=== PATIENT | male | born 1975 | race Caucasian/White ===

== ENCOUNTER 2019-09-12 23:41 | Emergency (ER) | payer OTHER, SELFPAY ==
--- NOTE | ~2019-09-12 | XR_ITS ---
EXAMINATION: XR ankle RT min 3V DATE: 09/13/2019 01:03 INDICATION: Right ankle pain post fall TECHNIQUE: Anteroposterior, oblique, mortise, and lateral views of the right ankle were obtained. COMPARISON: None. FINDINGS: Alignment is normal. No acute fracture. Tiny corticated ossicle with smooth margins either degenerat donnell loose body or heterotopic ossification related to old deltoid ligament sprain projecting over the medial clear space. Joint spaces are well maintained. No ankle joint effusion. Prominent soft tissu e swelling about the lateral malleolus. Tiny plantar calcaneal spur. Small amount of enthesopathic os sification at the distal Achilles tendon. IMPRESSION: 1. No acute osseous abnormality. Reviewed, dictated and finalized at location A.
[2019-09-12 23:55] VITALS: BP 98/65; PULSE 79; RESP 18; TEMP 36.3; O2SAT 95
--- NOTE | 2019-09-13 01:43 | ED.LOWEXIN ---
HPI - Extremity Injury (Lower) General Chief Complaint: Extremity Injury, Lower Stated Complaint: RIGHT ANKLE INJURY Time Seen by Provider: 09/13/19 01:05 Source: patient Mode of arrival: ambulatory Limitations: no limitations History of Present Illness HPI Narrative: This patient is 43 yo male who presents with c/o right ankle injury. He states just 20 minutes prior to arrival he stepped off a porch and he felt a pop . He has pain and swelling to right lateral ankle. He states his pain is worse with walking. He has not taken anything pain. Denies falling or hitting head. complaint: ankle injury (right ankle) Related Data Home Medications Medication Instructions Recorded Confirmed alprazolam 0.5 mg PO PRN 09/12/19 lisinopril 10 mg PO DAILY 09/12/19 Allergies Allergy/AdvReac Type Severity Reaction Status Date / Time No Known Allergies Allergy Verified 09/12/19 23:58 Review of Systems Review of Systems: All systems reviewed & are unremarkable except as noted in HPI and below Constitutional: Constitutional: Denies chills and Denies fever(s) Musculoskeletal: Musculoskeletal: Reports joint swelling Neurologic: Denies focal weakness and Denies numbness PMF Past Medical History Medical History (Updated 09/13/19 @ 01:51 by Shabana Estrada MD) Hypertension Family History Family History (Updated 06/25/16 @ 10:13 by DOCTOR UNKNOWN) Mother Family history of diabetes mellitus in first degree relative Family history of type 2 diabetes mellitus Other Cerebrovascular accident Family history of malignant neoplasm Hypertension Social History Social History Smoking status: Former smoker Smoking end date: 05/26/15 Alcohol intake: current Exam Const: General: no acute distress and alert Orientation/consciousness: patient oriented x3 HENMT: Head: normocephalic and atraumatic Eyes: EOM: EOMs intact bilaterally Neck: Neck: normal visual inspection Resp: Effort & Inspection: normal respiratory effort Skin: General skin exam: normal color Rashes: no rashes Neuro: General: patient oriented x3 and moves all extremities Extrem: Other: right ankle with right lateral malleolus swelling and tenderness. No TTP proximal to ankle. Strong palpable DP, PT pulse Psych: Mental Status: mental status grossly normal Course Course Emergency Course: PAtient presented with right ankle injury. I have discussed with patient that xray shows no fracture and the xray will be reviewed by radiology in the morning. He will be called for discrepancy. He was given crutches and ice pack Vital Signs Vital signs: Vital Signs Temperature 97.4 F L 09/12/19 23:55 Pulse Rate 79 09/12/19 23:55 Respiratory Rate 18 09/12/19 23:55 Blood Pressure 98/65 L 09/12/19 23:55 Pulse Oximetry 95 09/12/19 23:55 Temperature 97.4 F L 09/12/19 23:55 Pulse Rate 88 09/13/19 02:05 Respiratory Rate 18 09/13/19 02:05 Blood Pressure 129/77 09/13/19 02:05 Pulse Oximetry 98 09/13/19 02:05 MDM - Extremity Injury (Lower) Imaging Data My impression: right ankle xray- no acute fracture. Discharge Plan Discharge Clinical Impression: Right ankle sprain Qualifiers: Encounter type: initial encounter Involved ligament of ankle: other ligament Qualified Code(s): S93.491A - Sprain of other ligament of right ankle, initial encounter Patient Disposition: Home, Self-Care Condition: Stable Instructions: Antibiotic Form, Ankle Sprain (ED) Additional Instructions: Today you were evaluated for an ankle sprain. Continue to elevate and ice to help reduce swelling and pain. Taken medication such as naproxen or ibuprofen for your pain. you can use walking boot over the next week to help reduce pressure. You pain should reduce over the next 3-4 days. Prescriptions: No Action alprazolam 0.5 mg tablet 0.5 mg PO PRN (Reason: Anxiety) RF: 0 lisinopril 10 mg tablet 10
[2019-09-13] MEDS: IBUPROFEN 400 MG TABLET 800 MG PO (01:59)
[2019-09-13 02:05] VITALS: BP 129/77; PULSE 88; RESP 18; O2SAT 98
== END 2019-09-13 02:06 | disposition home or self-care (01) ==
PROVIDERS: Emergency Provider General Practice
DX: S93.491A Sprain of other ligament of right ankle, initial encounter (principal); I10 Essential (primary) hypertension; Z87.891 Personal history of nicotine dependence; X50.9XXA Other and unspecified overexertion or strenuous movements or postures, initial encounter
CPT/HCPCS: 73610; 99283; A9270

== ENCOUNTER 2020-01-18 17:38 | Emergency (ER) | payer OTHER, SELFPAY ==
--- NOTE | ~2020-01-18 | XR_ITS ---
XR ankle RT min 3V 01/18/2020 18:02 Indication: Right ankle pain laterally. Procedure: 4 views right ankle Comparison: 09/13/2019 Findings: There is a new ossific density along the medial margin of the medial malleolus, suspicious for avulsion fracture. Ankle mortise intact. No other fractures. Ankle mortise intact. Talar dome is normal. No foreign bodies. Impression: 1: New small ossific density adjacent to the medial malleolus, suspicious for avulsion fracture. Victoriano elate for point tenderness. Reviewed, dictated and finalized at location A. Impression: 1: New small ossific density adjacent to the medial malleolus, suspicious for a vulsion fracture. Correlate for point tenderness.
[2020-01-18 17:50] VITALS: BP 147/94; PULSE 81; RESP 18; TEMP 36.7; O2SAT 100
--- NOTE | 2020-01-18 17:55 | ED.LOWEXIN ---
HPI - Extremity Injury (Lower) General Chief Complaint: Extremity Injury, Lower Stated Complaint: R/ankle pain Time Seen by Provider: 01/18/20 17:40 Source: patient Mode of arrival: ambulatory Limitations: no limitations History of Present Illness HPI Narrative: Patient presents for evaluation of right ankle pain. He indicates he sustained an injury to the right ankle back in August of this year. He was walking down some steps when he twisted his ankle. He was evaluated in the emergency department and states that he had an x-ray that was negative for fracture. He eventually purchased a boot which seemed to alleviate his pain. Over the course of the last week he has noted worsening pain in the right lateral malleolus. He cannot identify any new precipitating factor. He states over the course of 4 hours pain has become unbearable . He describes the pain is sharp , rated 7 out of 10 in severity. Reports some decreased range of motion. No paresthesias. No radicular component. Tried taking Aleve with minimal improvement in his symptoms or after. Related Data Home Medications Medication Instructions Recorded Confirmed lisinopril 10 mg PO DAILY 09/12/19 01/18/20 Allergies Allergy/AdvReac Type Severity Reaction Status Date / Time No Known Allergies Allergy Verified 09/12/19 23:58 Review of Systems Review of Systems: Narrative: CONSTITUTIONAL: Denies fever, chills, or sweats. EYES: Denies visual changes, redness, or discharge. ENT: Denies rhinorrhea, congestion, sore throat, or otalgia. CARDIOVASCULAR: Denies chest pain, palpitations, or edema. RESPIRATORY: Denies cough or dyspnea. GASTROINTESTINAL: Denies abdominal pain, nausea, vomiting, or diarrhea. GENITOURINARY: Denies dysuria or hematuria. SKIN: Denies rash or itching. MUSCULOSKELETAL: Denies back pain,or myalgia. Reports right ankle pain NEUROLOGIC: Denies headache, numbness, dizziness, or weakness. PSYCHIATRIC: Denies anxiety or depression. [facility] Past Medical History Medical History Hypertension Family History Family History Mother Family history of diabetes mellitus in first degree relative Family history of type 2 diabetes mellitus Other Cerebrovascular accident Family history of malignant neoplasm Hypertension Social History Social History (Updated 01/18/20 @ 17:58 by Semaj Howard, [facility], ) Smoking status: Former smoker Smoking end date: 05/26/15 Alcohol intake: current Alcohol use details: variable in number of drinks but typically consumes ETOH twice per week Gender identity (if verbalized by the patient): Male Exam Narrative: Exam Narrative: GENERAL: Well-appearing, well-nourished, and in no acute distress. HEAD: Normocephalic, atraumatic. EYES: PERRLA and EOMI. ENT: Nares clear, no rhinorrhea or epistaxis. Mucous membranes moist. Oropharynx without tonsillar hypertrophy exudate or other lesions. Bilateral TMs pearly howell nonbulging NECK: Supple. No adenopathy or masses. No carotid bruits or JVD CHEST: Clear to auscultation. No respiratory distress. No wheezes rales or rhonchi HEART: Regular rate and rhythm. No murmur heard. Normal peripheral pulses. ABDOMEN: Soft, nontender, nondistended, normal active bowel sounds. EXTREMITIES: Normal range of motion of right ankle without crepitus, deformity or swelling. He is able to dorsi and plantarflex the right foot without difficulty. Ambulatory. No tenderness in right ankle SKIN: Warm, dry, no rash. NEURO: No focal deficits. Alert and oriented x3. PSYCH: Normal mood and affect. Course Course Emergency Course: Patient was seen for recurrent right ankle pain. He declined analgesics during his evaluation here. Questionable avulsion fracture right over medial malleolus. Patient has no point tenderness there to suggest that this is an indeed fracture.
== END 2020-01-18 18:23 | disposition home or self-care (01) ==
PROVIDERS: Emergency Provider Nurse Practitioner; PCP Nurse Practitioner
DX: S93.401A Sprain of unspecified ligament of right ankle, initial encounter (principal); S96.911A Strain of unspecified muscle and tendon at ankle and foot level, right foot, initial encounter; X50.9XXA Other and unspecified overexertion or strenuous movements or postures, initial encounter; S82.891A Other fracture of right lower leg, initial encounter for closed fracture; I10 Essential (primary) hypertension; Z87.891 Personal history of nicotine dependence
CPT/HCPCS: 73610; 99213; G0463

== ENCOUNTER 2020-02-29 15:35 | Emergency (ER) | payer OTHER, SELFPAY ==
--- NOTE | 2020-02-29 15:42 | ED.GENADULT ---
HPI - General Adult General Chief complaint: Upper Respiratory Infection Stated complaint: sore throat/body aches Time Seen by Provider: 02/29/20 15:43 Source: patient Mode of arrival: ambulatory Limitations: no limitations History of Present Illness HPI narrative: 44-year-old male patient presents to the [facility] with complaints of sore throat that started yesterday and body aches that started today. Denies any fevers or chills. Denies any ear pain but states he has had a little bit of a stuffy runny nose as well as drainage to the back of the throat. Patient states he is also had a little bit of coughing due to the drainage and sneezing. Denies any chest pain, shortness of breath, abdominal pain, nausea, vomiting or diarrhea. Patient states he has taken some [id number] Chloraseptic spray and use some cough drops for his symptoms so far. Related Data Home Medications Medication Instructions Recorded Confirmed lisinopril 10 mg PO DAILY 09/12/19 02/29/20 Allergies Allergy/AdvReac Type Severity Reaction Status Date / Time No Known Allergies Allergy Verified 09/12/19 23:58 Review of Systems Review of Systems: Narrative: CONSTITUTIONAL: Denies fever, chills, or sweats. Positive body aches EYES: Denies visual changes, redness, or discharge. ENT: Positive rhinorrhea and congestion, positive sore throat, denies otalgia. Positive sneezing CARDIOVASCULAR: Denies chest pain, palpitations, or edema. RESPIRATORY: Positive nonproductive cough or dyspnea. GASTROINTESTINAL: Denies abdominal pain, nausea, vomiting, or diarrhea. GENITOURINARY: Denies dysuria or hematuria. SKIN: Denies rash or itching. MUSCULOSKELETAL: Denies back pain, joint pain, or myalgia. NEUROLOGIC: Denies headache, numbness, or weakness. PSYCHIATRIC: Denies anxiety or depression. [facility] Past Medical History Medical History Hypertension Family History Family History Mother Family history of diabetes mellitus in first degree relative Family history of type 2 diabetes mellitus Other Cerebrovascular accident Family history of malignant neoplasm Hypertension Social History Social History (Reviewed 02/29/20 @ 15:43 by JAMI Dempsey Smoking status: Former smoker Smoking end date: 05/26/15 Alcohol intake: current Gender identity (if verbalized by the patient): Male Comments At the time of my signature I agree with nursing past medical history, surgical, social, and family history. There is no relevant family history pertinent to the presenting complaint. Exam Narrative: Exam Narrative: GENERAL: Well-appearing, well-nourished, and in no acute distress. HEAD: Normocephalic, atraumatic. EYES: PERRLA and EOMI. ENT: With erythema and edema noted bilaterally, no rhinorrhea or epistaxis. Mucous membranes moist. Posterior pharynx with some erythema and 2+ tonsillar erythema noted to the left tonsil. Left TMs are clear no erythema or foreign bodies to the canal. Unable to assess the right TM due to cerumen impaction NECK: Supple. Left-sided lymphadenopathy with tenderness noted on palpation CHEST: Clear to auscultation. No respiratory distress. Patient able to clear complete sentences. HEART: Regular rate and rhythm. No murmur heard. Normal peripheral pulses. ABDOMEN: Soft, nontender, nondistended, normal active bowel sounds. EXTREMITIES: Normal range of motion. No edema. SKIN: Warm, dry, no rash. NEURO: No focal deficits. Alert and oriented x3. Course Reevaluation(s) Reevaluation #1: Reevaluated patient after his strep test had resulted. Discussed with him that his strep test today is negative however we will send it off the lab for culture and if the culture comes back positive in the next day or 2 we will call him and place him on antibiotics at that time. Discussed with patient that since he does have the associated
[2020-02-29 15:43] VITALS: BP 150/84; PULSE 97; RESP 20; TEMP 37.2; O2SAT 99
== END 2020-02-29 15:58 | disposition home or self-care (01) ==
PROVIDERS: Emergency Provider Nurse Practitioner Family
DX: J02.8 Acute pharyngitis due to other specified organisms (principal); R59.1 Generalized enlarged lymph nodes; Z87.891 Personal history of nicotine dependence; I10 Essential (primary) hypertension
CPT/HCPCS: 87081; 87880; 99213; G0463

== ENCOUNTER 2021-09-05 16:35 | Emergency (ER) | payer OTHER, SELFPAY ==
--- NOTE | 2021-09-05 16:52 | ED.URI ---
HPI - URI/Sore Throat General Chief Complaint: Upper Respiratory Infection Stated Complaint: sorethroat Time Seen by Provider: 09/05/21 16:52 Source: patient Mode of arrival: ambulatory Limitations: no limitations History of Present Illness HPI Narrative: Earl Griffiths is a 45 yo male with PMH of HTN who comes to express care with c/o sore throat x 1 day. He has an enlarged lymph node on L also- hard to swallow. Subjective fever no nausea vomiting or diarrhea. his son was seen here on Friday for sore throat and his strep test was positive. Other child also seen by chiller hand was positive for strep Related Data Home Medications Medication Instructions Recorded Confirmed lisinopril 10 mg PO DAILY 09/12/19 09/05/21 Allergies Allergy/AdvReac Type Severity Reaction Status Date / Time No Known Allergies Allergy Verified 09/05/21 16:51 Review of Systems Review of Systems: CONSTITUTIONAL: Denies fever, chills, sweats. EYES: Denies visual changes, redness, discharge. ENT: Denies rhinorrhea, congestion, has sore throat, otalgia. Has left some mandibular lymph node enlargement CARDIOVASCULAR: Denies chest pain, palpitations, edema. RESPIRATORY: Denies dyspnea, wheezing, cough GASTROINTESTINAL: Denies abdominal pain, nausea, vomiting, diarrhea. GENITOURINARY: Denies dysuria, hematuria, abnormal discharge SKIN: Denies rash or itching. NEUROLOGIC: Denies numbness, or focal weakness. PSYCHIATRIC: Denies anxiety or depression. [facility] Past Medical History Medical History GERD (gastroesophageal reflux disease) Hypertension Obese Family History Family History Mother Family history of diabetes mellitus in first degree relative Family history of type 2 diabetes mellitus Father Alcohol abuse Other Cerebrovascular accident Family history of malignant neoplasm Hypertension Social History Social History (Updated 09/05/21 @ 17:08 by Aarti Triplett CNP) Smoking packs per day: 1 Smoking cigarettes per day: 20.0 Smoking status: Current every day smoker Tobacco type: cigarettes Smoking end date: 05/26/15 Alcohol intake: current Alcohol use details: variable in number of drinks but typically consumes ETOH twice per week-when asked if he drinks more than socially patient states yes Gender identity (if verbalized by the patient): Male Comments At time of signature, I agree with nursing past medical, surgical, social and family history. There is no relevant family history pertinent to the presenting complaint. Exam Narrative: GENERAL: This is a well-nourished, well-developed patient, in moderate distress. HEAD: normocephalic, atraumatic. EYES: Sclera clear/white. Vision is grossly intact. EARS: External ears normal, auditory canals clear and without drainage, TMs normal without perforation. Hearing grossly intact. NOSE: External nose normal without nasal discharge, nares without redness, no rhinorrhea. THROAT: Mucous membranes moist, posterior pharynx erythema-pain on swallowing NECK: Neck supple, tender left submandibular lymph node CARDIOVASCULAR: Regular rate and rhythm without murmurs, gallops, or rubs. RESPIRATORY: Clear to auscultation. Breath sounds equal bilaterally. No wheezes, rales, or rhonchi. GASTROINTESTINAL: Abdomen soft, non-tender, SKIN: warm, intact with no suspicious lesions or rash, good texture and turgor. NEURO: awake, alert, and oriented to person, place and time. There were no obvious focal neurologic abnormalities. Steady gait EXTREMITIES: Normal range of motion. BACK: Nontender without deformity Course Course Emergency Course: Patient complaining of sore throat and left lymph node pain Strep test is negative however both children have been diagnosed with strep in the last week and he started feeling poorly last night Started on amoxicillin 875 1 twice d
[2021-09-05 16:53] VITALS: BP 156/90; PULSE 78; RESP 18; TEMP 36.6; O2SAT 100
== END 2021-09-05 17:21 | disposition home or self-care (01) ==
PROVIDERS: Emergency Provider Nurse Practitioner
DX: L04.0 Acute lymphadenitis of face, head and neck (principal); J02.9 Acute pharyngitis, unspecified; Z87.891 Personal history of nicotine dependence; K21.9 Gastro-esophageal reflux disease without esophagitis; I10 Essential (primary) hypertension
CPT/HCPCS: 87081; 87880; 99213; G0463